=== PATIENT | female | born 1975 | race Caucasian/White ===

== ENCOUNTER 2017-07-29 18:41 | Observation (INO) | payer OTHER ==
[~2017-07-29] VITALS: Ht 162.6 cm; Wt 67.1 kg
--- NOTE | 2017-07-29 19:30 | ED GENERAL ADULT ---
History of Present Illness General Chief Complaint: General Adult Stated Complaint: SIB MD FOR ANEMIA Source: patient, family Exam Limitations: no limitations Vital Signs & Intake/Output Vital Signs & Intake/Output Vital Signs Date Time Temp Pulse Resp B/P B/P Pulse O2 O2 Flow FiO2 Mean Ox Delivery Rate 07/30 0920 100.2 07/30 0905 100.2 68 15 104/64 96 Room Air Room Air 07/30 0850 99.5 70 15 114/67 96 Room Air Room Air 07/30 0745 99.1 69 15 109/56 96 Room Air Room Air 07/30 0015 98.1 74 18 103/59 100 Nasal 2.0L Cannula 07/29 2133 98.9 75 16 113/57 100 Nasal 2.0L Cannula 07/29 2113 99.0 82 16 114/67 100 Nasal 2.0L Cannula 07/29 2030 100 Nasal 2.0L Cannula 07/29 1850 99.3 100 20 126/75 99 Room Air ED Intake and Output 07/30 0000 07/29 1200 Intake Total Output Total Balance Patient 148 lb Weight Allergies Coded Allergies: cefaclor (From CECLOR) (Intermediate, SERUM POISONING 07/29/17) erythromycin base (Intermediate, RASH 07/29/17) Reconcile Medications Iron/C/Folate 6/B12/Zn/Stomach (Chromagen Softgel) 75-60-1 MG CAPSULE 1 CAP PO DAILY SUPPLEMENT (Reported) Norethindrone-E.estradiol-Iron (Microgestin Fe 1-20 Tablet) (Unknown Strength) TABLET (Unknown Dose) UNKNOWN (Reported) Triage Note: 41F SIB OBGYN BY DR COTTON FOR BLOOD TRANSFUSION. REPORTS HX FIBROIDS AND HAS HAD VAGINAL BLEEDING SINCE 07/11 AND NOW ANEMIC FEELING VERY FATIGUED AND PALE. SOB WORSE WITHE EXERTION. +HEADACHE 03/10 TAKING MOTRIN WITHOUT RELIEF. TUNNEL VISION INTERMITTENTLY NONE AT PRESENT ALTERNATIVE CHILLS/WARM TEMP 99.3 IN TRIAGE. AMBULATORY O2 SAT DROPPED FROM 99 TO 86% AND PT BECAME DIZZY AND LIGHTHEADED. BROUGHT TO ROOM 10 AND PLACED ON [employer]. DENIES CHEST PAIN, APPEARS NORMAL SINUS WITHOUT ECTOPY Triage Nurses Notes Reviewed? yes Onset: Gradual Duration: week(s): (FEW) Timing: recent history Injury Environment: home Severity: mild, moderate Associated Symptoms: chest pain, DYSPNEA : No Patient currently breastfeeds: No HPI: This is a 41-year-old female who presents to the ER for chief complaint of shortness breath with exertion, palpitations with exertion for the past few weeks. She has been having vaginal bleeding daily since July 11. She was seen at her [facility] 2 days ago had blood work done. This morning she had a hysterosalpingogram and identified uterine fibroids. Today she was called back from the OB doctor told that her Hemoccult was 5.6 and told to come to the hospital for blood transmission. History of mild anemia. She started iron 2 days ago. No history of previous transfusions. Patient states that when she exerts herself she feels lightheaded and dizzy and gets some chest pressure. No chest pressure or shortness of breath at this time. Has been states that for the past few weeks she looked very pale. (Katie Allen MD) Past History Travel History Traveled to [place] past 21 day No Medical History Any Pertinent Medical History? see below for history Blood Disorders: anemia [employer]/Reproductive: UTERINE FIBROIDS Surgical History Surgical History: cholecystectomy, , ACL Psychosocial History What is your primary language Armenian Tobacco Use: Never used ETOH Use: occasional use Illicit Drug Use: denies illicit drug use Family History Comment: MOTHER WITH ANEMIA (DUB, HYSTERECTOMY) Hx Contributory? Yes (Katie Allen MD) Review of Systems Review of Systems Constitutional: Reports: malaise. Denies: chills, fever. EENTM: Reports: no symptoms. Respiratory: Reports: short of breath. Denies: cough, sputum production. Cardiovascular: Reports: chest pain, palpitations. Denies: peripheral edema. GI: Denies: abdominal pain. Genitourinary: Reports: no symptoms. Musculoskeletal: Reports: no symptoms. Skin: Reports: no symptoms. Neurological/Psychological: Reports: no symptoms. Hematologic/Endocrine: Reports: bleeding. Denies: bruising, polyuria, polydipsia. Immunologic/Allergic: Denies: splenectomy. All Other Systems: Reviewed and Negative (Katie Allen MD) Physical Exam Physical Exam General Appearance: well developed/nourished, alert, awake, anxious, mild distress, moderate distress, thin Head: atraumatic, normal appearance Eyes: Bilateral: normal appearance, PERRL, EOMI, pale conjunctivae. Ears, Nose, Throat: normal pharynx, normal ENT inspection, hearing grossly normal Neck: normal inspection, supple, full range of motion Respiratory: normal breath sounds, chest non-tender, no respiratory distress Cardiovascular: regular rate/rhythm, normal peripheral pulses Peripheral Pulses: 2+ radial (R), 2+ radial (L) Gastrointestinal: normal bowel sounds, soft, non-tender Back: normal inspection, normal range of motion Extremities: normal inspection, normal capillary refill, normal range of motion, no edema Neurologic/Psych: no motor/sensory deficits, awake, alert, oriented x 3 Core Measures ACS in differential dx? Yes CVA/TIA Diagnosis: No Sepsis Present: No Sepsis Focused Exam Completed? No (Tiffany ERNANDEZ,Katie) Progress Differential Diagnoses I considered the following diagnoses in my evaluation of the patient: [ SYMPTOMATIC ANEMIA, FIBROIDS, ACUTE BLOOD LOSS, ACS] Plan of Care: Orders Procedure Date/time Status Regular Diet 07/30 B Active BLOOD PRODUCT PICKUP 07/30 0754 Active BLOOD PRODUCT PICKUP 07/30 0349 Active BLOOD PRODUCT PICKUP 07/30 0034 Active LEUKOCYTE POOR (PACKED CELLS) 07/298 Active Add-on Test (ER Only) 07/29 2043 Active LEUKOCYTE POOR (PACKED CELLS) 07/29 2021 Active BLOOD PRODUCT PICKUP 07/[address] in observation 07/29 2000 Active ED Holding Orders 07/29 2000 Active Patient Data 07/29 2000 Active Vital Signs 07/29 2000 Active Code Status 07/29 2000 Active LEUKOCYTE POOR (PACKED CELLS) 07/29 1953 Active Add-on Test (ER Only) 07/29 1930 Active HUMAN BETA HCG SCREEN 07/29 1930 Complete EKG 07/29 1929 Active TROPONIN LEVEL 07/29 1903 Complete PARTIAL THROMBOPLASTIN TIME 07/29 1903 Complete PROTHROMBIN TIME 07/29 1903 Complete D-DIMER 07/29 1903 Complete COMPREHENSIVE METABOLIC PANEL 07/29 1903 Complete CBC WITHOUT DIFFERENTIAL 07/29 1903 Complete TYPE & SCREEN (NOT X-MATCH) 07/29 1903 Active Intake & Output 07/29 185 Active Laboratory Tests 07/29/17 1930: Anion Gap 7, Estimated GFR > 60, BUN/Creatinine Ratio 16.3, Glucose 86, Calcium 8.9, Total Bilirubin < 0.1 L, AST 26, ALT 47, Alkaline Phosphatase 42, Troponin I < 0.01, Total Protein 5.5 L, Albumin 3.0 L, Globulin 2.5, Albumin/Globulin Ratio 1.2, Total Beta HCG NEGATIVE, PT 12.2, INR 1.16, APTT 33, D-Dimer High Sensitivty 594 H, CBC w Diff NO MAN DIFF REQ, RBC 1.60 L, MCV 83.1, MCH 27.7, RDW 14.3, MPV 8.4, Gran % 67.7, Lymphocytes % 23.0, Monocytes % 7.3, Eosinophils % 1.2, Basophils % 0.8, Absolute Granulocytes 3.2, Absolute Lymphocytes 1.1 L, Absolute Monocytes 0.4, Absolute Eosinophils 0.1, Absolute Basophils 0, PUBS MCHC 33.3 07/29/17 1903: Urine Test Cancelled Initial ED EKG: NSR Hand-Off Endorsed To: Michael Baker MD Endorsed Time: 0700 Pending: other (TRANSFUSION, reevaluation) (Katie Allen MD) Comments: TO FEELS MUCH BETTER SHE WILL FOLLOW UP WITH HER [employer] (Michael Baker MD) Departure Departure Condition: Stable Clinical Impression Primary Impression: Symptomatic anemia Secondary Impressions: Uterine fibroid Referrals: George Alcazar MD (PCP/Family) Departure Forms: Customer Survey General Discharge Information (Katie Allen MD) Departure Disposition: HOME OR SELF CARE Additional Instructions: FOLLOW UP WITH YOUR GYNOCOLOGIST RETURN FOR ANY CONCERNS (Michael Baker MD) Critical Care Note Critical Care Note Critical Care Time: 75-104 min (Katie Allen MD) ED Attending Observation Initial Observation Note: I have seen and personally examined SRUTHI CONNORS on 07/29/17 at 2001. I agree with the current emergency department documentation. The disposition (admission or discharge) is uncertain at this time, she needs a period of observation for the following reason(s): [PATIENT WITH SYMPTOMATIC ANEMIA, HGB 5.6, WILL REQUIRE 2 UNITS OF PACKED RBC'S] The ED Nurse caring for this patient has been personally informed as to what the patient is being observed for. Observation Re-Evaluation: I have reevaluated SRUTHI CONNORS on 07/29/17 at 2232. The physical findings that support the continued need to observe this patient include [PATIENT TOLERATING TRANSFUSION WELL, CURRENTLY EATING. DR NESSA RAM PAGED.]. 11 PM D/W DR RAM - WOULD LIKE HER TO GET 4 UNITS TOTAL, ALSO DEPO PROVERA INJECTION ORDERED. 5:38 am patient tolerating transfusions well. 3RD UNIT GOING IN. DR RAM WOULD LIKE TO BE CONTACTED IN AM FOR ANY ISSUES ([phone]) (Tiffany ERNANDEZ,Katie) Initial Observation Note: I have seen and personally examined SRUTHI CONNORS on 07/30/17 at 1032. I agree with the current emergency department documentation. The disposition (admission or discharge) is uncertain at this time, she needs a period of observation for the following reason(s): The ED Nurse caring for this patient has been personally informed as to what the patient is being observed for. Observation Discharge: I have reevaluated SRUTHI CONNORS on 07/30/17 at 1032. The patient is: ([X]): Stable for discharge (): To be admitted to Nursing Floor (): To be placed in Observation on Nursing Floor (): For transfer to other facility The patient was being observed for [ANEMIA] As a result of that observation, I have determined [STABKE FOR DISCHAGE]. (Olivia ERNANDEZ,Michael Mitchell)
[2017-07-29 19:51] LABS: ABSOLUTE BASOPHIL COUNT 0 /CUMM (0.0-0.2); ABSOLUTE EOSINOPHIL COUNT 0.1 /CUMM (0.0-0.7); ABSOLUTE LYMPH COUNT 1.1 /CUMM (1.2-3.4); RBC DISTRIBUTION WIDTH 14.3 % (11.5-14.5); WHITE BLOOD CELL COUNT 4.8 /CUMM (4.8-10.8)
[2017-07-29 19:55] LABS: ABSOLUTE GRANULOCYTE CT 3.2 /CUMM (1.4-6.5); ABSOLUTE MONOCYTE COUNT 0.4 /CUMM (0.10-0.60); BASOPHIL % 0.8 % (0.0-2.0); EOSINOPHIL % 1.2 % (0-5); GRANULOCYTE % 67.7 % (42.2-75.2); MEAN CORPUSCULAR HGB 27.7 PG (27.0-31.0); MEAN CORPUSCULAR HGB CONC 33.3 G/DL (33.0-37.0); MEAN CORPUSCULAR VOLUME 83.1 FL (81.0-99.0); MEAN PLATELET VOLUME 8.4 FL (7.4-10.4); PLATELET COUNT 285 /CUMM (130-400)
[2017-07-29 20:06] LABS: HEMATOCRIT 13.3 % (37-47)
[2017-07-29] MEDS ORDERED: CHROMAGEN SOFT1 EACH PO (20:16)
[2017-07-29] MEDS ORDERED: MICROGESTIN FE1 EAC1 (20:17)
[2017-07-29 20:52] LABS: PT 12.2 SEC (9.4-12.5); PTT 33 SEC (25-37)
[2017-07-30 10:20] VITALS: BP 133/73
== END 2017-07-30 10:58 ==
LOC: ERH 18:41 → ERHI 20:00 → ENRESERV 20:41 → ERH 07-30 10:55 → ERHI 07-30 10:55
PROVIDERS: Emergency Medicine
DX: D64.9 Anemia, unspecified (principal); R06.02 Shortness of breath; R00.2 Palpitations; D21.9 Benign neoplasm of connective and other soft tissue, unspecified
CPT/HCPCS: 81025; 86920; 93005; 93010; 96372; 99291; J1050; P9016